=== PATIENT | male | born 1940 | race Caucasian/White ===

== ENCOUNTER 2019-09-29 08:50 | Inpatient (IN) ==
[2019-09-29] MEDS ORDERED: METOPROLOL TARTRATE 5 MG/5 ML VIAL IV STA ×2 (09:16→10:35)
[2019-09-29] MEDS ORDERED: ASPIRIN CHEW 81 MG TABLET PO STA (09:16)
[2019-09-29 09:50] LABS: Calcium 8.8 MG/DL (8.5-10.1); Osmolality,Calculated 285.5 MOS/KG (273-304)
[2019-09-29 09:58] LABS: Basophils % 0.5 % (0.0-0.8); Eosinophils # 0.1 10*3/uL (0.0-0.87); Eosinophils % 1.1 % (0.00-10.9); Hematocrit 32.7 VOL% (42.0-52.0); Immature Granulocytes % 0.8 %; Immature Granulocytes Absolute 0.05 #; Lymphocytes # 0.7 10*3/uL (1.4-4.0); Lymphocytes % 10.3 % (21.2-54.2); Mean Corpuscular HGB Conc 29.7 GM/DL (32-36); Mean Corpuscular Volume 86.5 FL (87-102); Mean Platelet Volume 11.3 FL (9.6-12.0); Monocytes % 13.2 % (1.7-12.7); Neutrophils % 74.1 % (38.7-73.9); Platelet Count 189 T/CUMM (130-400); Red Blood Count 3.78 MC/CUMM (3.8-5.5); Red Cell Distribution Width 17.9 % (9.3-17.3); White Blood Count 6.3 T/CUMM (4-12)
[2019-09-29 10:00] LABS: Hemoglobin 9.7 GM/DL (14.0-18.0)
[2019-09-29] MEDS ORDERED: SODIUM CHLORIDE 0.9% 1,000 ML IV STA (10:04)
[2019-09-29 10:20] LABS: PT Patient Result 10.9 SECS (9.8-11.9)
[2019-09-29] MEDS ORDERED: METOPROLOL TARTRATE 25 MG TABLET PO STA (11:22)
[2019-09-29] MEDS ORDERED: DEXTROSE 50% 25 GM/50 ML VIAL IV PRN (12:13)
[2019-09-29] MEDS ORDERED: GLUCAGON 1 MG VIAL IM PRN (12:13)
[2019-09-29] MEDS ORDERED: PANTOPRAZOLE 40 MG TABLET PO PRN (13:30)
[2019-09-29] MEDS: SODIUM CHLORIDE 0.9% 1,000 ML IV SCH (14:43)
[2019-09-29] MEDS: ALBUTEROL/IPRATROPIUM 3 ML NEB RESP TX PRN (16:44)
[2019-09-29] MEDS: DILTIAZEM 60 MG TABLET PO SCH ×2 (17:28→21:20)
[2019-09-29] MEDS ORDERED: METOPROLOL TARTRATE 25 MG TABLET PO SCH (18:00)
[2019-09-29] MEDS: APIXABAN 2.5 MG TABLET PO SCH (21:20)
[2019-09-29] MEDS: AMIODARONE 200 MG TABLET PO SCH (21:20)
[2019-09-29] MEDS: ONDANSETRON 4 MG/2 ML VIAL IV PRN (22:15)
[2019-09-29] MEDS ORDERED: ZALEPLON 5 MG CAPSULE PO ONE (22:31)
[2019-09-30] MEDS: SODIUM CHLORIDE 0.9% 1,000 ML IV SCH (02:32)
[2019-09-30 06:39] LABS: Calcium 8.2 MG/DL (8.5-10.1); Osmolality,Calculated 285.7 MOS/KG (273-304)
[2019-09-30] MEDS: ONDANSETRON 4 MG/2 ML VIAL IV PRN ×2 (07:09→11:42)
[2019-09-30 07:10] LABS: Albumin 2.7 G/DL (3.4-5.0); Bilirubin,Total 0.5 MG/DL (0.2-1.0); Calcium 8.3 MG/DL (8.5-10.1); Osmolality,Calculated 287.5 MOS/KG (273-304); Total Protein 6.4 G/DL (6.4-8.3)
[2019-09-30 07:20] LABS: Basophils % 0.7 % (0.0-0.8); Eosinophils % 0.3 % (0.00-10.9); Hematocrit 31.1 VOL% (42.0-52.0); Immature Granulocytes Absolute 0.06 #; Lymphocytes # 0.6 10*3/uL (1.4-4.0); Lymphocytes % 10.2 % (21.2-54.2); Mean Corpuscular HGB Conc 28.9 GM/DL (32-36); Mean Corpuscular Volume 87.6 FL (87-102); Mean Platelet Volume 11.8 FL (9.6-12.0); Monocytes % 10.5 % (1.7-12.7); Neutrophils % 77.3 % (38.7-73.9); Platelet Count 203 T/CUMM (130-400); Red Blood Count 3.55 MC/CUMM (3.8-5.5); Red Cell Distribution Width 17.9 % (9.3-17.3); White Blood Count 6.1 T/CUMM (4-12)
[2019-09-30] MEDS: ALBUTEROL/IPRATROPIUM 3 ML NEB RESP TX PRN ×3 (08:00→19:14)
[2019-09-30 08:18] LABS: Hypochromasia 1+; Microcytosis 1+; Ovalocytes Slight; Platelet Estimate Normal
[2019-09-30] MEDS: METOPROLOL SUCCINATE XL 25 MG TABLET PO SCH (09:19)
[2019-09-30] MEDS: DILTIAZEM 60 MG TABLET PO SCH (09:20)
[2019-09-30] MEDS: ATORVASTATIN 40 MG TABLET PO SCH (09:21)
[2019-09-30] MEDS: APIXABAN 2.5 MG TABLET PO SCH ×2 (09:21→20:41)
[2019-09-30] MEDS: AMIODARONE 200 MG TABLET PO SCH ×2 (09:22→20:41)
[2019-09-30] MEDS: FLUoxetine 20 MG CAPSULE PO SCH (09:22)
[2019-09-30] MEDS: ASPIRIN EC 81 MG TABLET PO SCH (09:22)
[2019-09-30] MEDS: BUDESONIDE/FORMOTEROL 80-4.5 INHALER 6.9 GM INH SCH ×2 (11:42→20:41)
[2019-09-30] MEDS ORDERED: DILTIAZEM 50 MG/10 ML VIAL IV ONE (14:33)
[2019-09-30] MEDS: dilTIAZem Drip 125 MG/125 ML PREMIX IV SCH (15:26)
[2019-10-01] MEDS: ALBUTEROL/IPRATROPIUM 3 ML NEB RESP TX PRN ×2 (00:34→07:38)
[2019-10-01] MEDS: dilTIAZem Drip 125 MG/125 ML PREMIX IV SCH ×2 (02:37→15:04)
[2019-10-01 06:59] LABS: Calcium 8.4 MG/DL (8.5-10.1); Osmolality,Calculated 289.7 MOS/KG (273-304)
[2019-10-01 07:12] LABS: Albumin 2.8 G/DL (3.4-5.0); Bilirubin,Direct 0.22 MG/DL (0.0-0.20); Bilirubin,Indirect 0.5 MG/DL (0.0-1.0); Bilirubin,Total 0.7 MG/DL (0.2-1.0); Thyroid Stimulating Hormone 2.71 uIU/ml (0.358-3.74); Total Protein 6.2 G/DL (6.4-8.3)
[2019-10-01 07:37] LABS: Basophils % 0.6 % (0.0-0.8); Eosinophils % 0.1 % (0.00-10.9); Hematocrit 30.5 VOL% (42.0-52.0); Immature Granulocytes % 1.5 %; Lymphocytes # 0.6 10*3/uL (1.4-4.0); Lymphocytes % 8.5 % (21.2-54.2); Mean Corpuscular HGB Conc 30.2 GM/DL (32-36); Mean Corpuscular Volume 86.9 FL (87-102); Mean Platelet Volume 10.9 FL (9.6-12.0); Monocytes % 10.8 % (1.7-12.7); Neutrophils % 78.5 % (38.7-73.9); Platelet Count 218 T/CUMM (130-400); Red Blood Count 3.51 MC/CUMM (3.8-5.5); Red Cell Distribution Width 17.9 % (9.3-17.3); White Blood Count 6.9 T/CUMM (4-12)
[2019-10-01 07:39] LABS: Hemoglobin 9.2 GM/DL (14.0-18.0)
[2019-10-01] MEDS: APIXABAN 2.5 MG TABLET PO SCH ×2 (08:28→21:46)
[2019-10-01] MEDS: ASPIRIN EC 81 MG TABLET PO SCH (08:28)
[2019-10-01] MEDS: METOPROLOL SUCCINATE XL 25 MG TABLET PO SCH (08:28)
[2019-10-01] MEDS: ATORVASTATIN 40 MG TABLET PO SCH (08:28)
[2019-10-01] MEDS: AMIODARONE 200 MG TABLET PO SCH (08:28)
[2019-10-01] MEDS: BUDESONIDE/FORMOTEROL 80-4.5 INHALER 6.9 GM INH SCH ×2 (08:28→21:46)
[2019-10-01] MEDS: FLUoxetine 20 MG CAPSULE PO SCH (08:29)
[2019-10-01] MEDS: ONDANSETRON 4 MG/2 ML VIAL IV PRN ×2 (08:30→13:01)
[2019-10-01] MEDS ORDERED: methylPREDNISolone SOD SUC 40 MG/1 ML VIAL IV ONE (10:47)
[2019-10-01] MEDS: DILTIAZEM 60 MG TABLET PO SCH ×2 (11:19→14:49)
[2019-10-01] MEDS ORDERED: CLORAZEPATE 3.75 MG TABLET PO PRN (11:31)
[2019-10-01] MEDS: methylPREDNISolone SOD SUC 40 MG/1 ML VIAL IV SCH ×2 (11:35→23:21)
[2019-10-01] MEDS ORDERED: FUROSEMIDE 40 MG/4 ML VIAL IV ONE (12:10)
[2019-10-01] MEDS: ASCORBIC ACID 500 MG TABLET PO SCH ×2 (13:16→21:46)
[2019-10-01] MEDS: FEXOFENADINE 60 MG TABLET PO SCH ×2 (13:36→21:46)
[2019-10-01] MEDS ORDERED: DIGOXIN 0.5 MG/2 ML AMP IV ONE ×2 (14:24→16:39)
[2019-10-01] MEDS: ALBUTEROL/IPRATROPIUM 3 ML NEB RESP TX SCH (14:52)
[2019-10-01] MEDS: DILTIAZEM 90 MG TABLET PO SCH (21:46)
[2019-10-02 04:31] LABS: Hematocrit 31.5 VOL% (42.0-52.0); Hemoglobin 9.3 GM/DL (14.0-18.0); Immature Granulocytes % 0.6 %; Immature Granulocytes Absolute 0.03 #; Lymphocytes # 0.3 10*3/uL (1.4-4.0); Lymphocytes % 4.9 % (21.2-54.2); Mean Corpuscular HGB Conc 29.5 GM/DL (32-36); Mean Corpuscular Volume 86.3 FL (87-102); Mean Platelet Volume 11.2 FL (9.6-12.0); Neutrophils % 93.5 % (38.7-73.9); Platelet Count 235 T/CUMM (130-400); Red Blood Count 3.65 MC/CUMM (3.8-5.5); Red Cell Distribution Width 17.7 % (9.3-17.3); White Blood Count 5.1 T/CUMM (4-12)
[2019-10-02 04:52] LABS: Calcium 8.8 MG/DL (8.5-10.1); Osmolality,Calculated 291.7 MOS/KG (273-304)
[2019-10-02 04:56] LABS: Band Neutrophils 2 % (0-10); Hypochromasia 1+; Lymphocytes 6 % (20-55); Myelocytes 1 %; Ovalocytes Slight; Segmented Neutrophils 90 % (50-85); Total Cells Counted 100
[2019-10-02 04:57] LABS: Microcytosis 1+; Platelet Estimate Normal; Polychromasia Slight
[2019-10-02] MEDS: ALBUTEROL/IPRATROPIUM 3 ML NEB RESP TX SCH ×6 (05:46→20:13)
[2019-10-02 09:27] LABS: % Iron Saturation 11.2 % (18-50)
[2019-10-02] MEDS: BUDESONIDE/FORMOTEROL 80-4.5 INHALER 6.9 GM INH SCH ×2 (10:10→20:35)
[2019-10-02] MEDS: ASPIRIN EC 81 MG TABLET PO SCH (10:11)
[2019-10-02] MEDS: METOPROLOL SUCCINATE XL 25 MG TABLET PO SCH (10:11)
[2019-10-02] MEDS: FLUoxetine 20 MG CAPSULE PO SCH (10:11)
[2019-10-02] MEDS: DILTIAZEM 90 MG TABLET PO SCH ×3 (10:11→20:36)
[2019-10-02] MEDS: ASCORBIC ACID 500 MG TABLET PO SCH ×2 (10:13→20:36)
[2019-10-02] MEDS: FEXOFENADINE 60 MG TABLET PO SCH ×2 (10:13→20:36)
[2019-10-02] MEDS: ATORVASTATIN 40 MG TABLET PO SCH (10:13)
[2019-10-02] MEDS: APIXABAN 2.5 MG TABLET PO SCH ×2 (10:13→20:35)
[2019-10-02] MEDS: methylPREDNISolone SOD SUC 40 MG/1 ML VIAL IV SCH ×2 (11:30→23:39)
[2019-10-02] MEDS: DIGOXIN 0.125 MG TABLET PO SCH (12:50)
[2019-10-02] MEDS: dilTIAZem Drip 125 MG/125 ML PREMIX IV SCH (14:03)
[2019-10-02] MEDS: FERROUS SULFATE 325 MG TABLET PO SCH (20:35)
[2019-10-03] MEDS: ONDANSETRON 4 MG/2 ML VIAL IV PRN ×2 (00:24→12:59)
[2019-10-03] MEDS: ALBUTEROL/IPRATROPIUM 3 ML NEB RESP TX SCH ×6 (00:58→18:22)
[2019-10-03 04:18] LABS: Basophils % 0.1 % (0.0-0.8); Hematocrit 28.1 VOL% (42.0-52.0); Hemoglobin 8.3 GM/DL (14.0-18.0); Immature Granulocytes % 0.6 %; Immature Granulocytes Absolute 0.06 #; Lymphocytes # 0.2 10*3/uL (1.4-4.0); Lymphocytes % 2.1 % (21.2-54.2); Mean Corpuscular HGB Conc 29.5 GM/DL (32-36); Mean Corpuscular Volume 85.7 FL (87-102); Mean Platelet Volume 10.9 FL (9.6-12.0); Monocytes % 3.2 % (1.7-12.7); Platelet Count 224 T/CUMM (130-400); Red Blood Count 3.28 MC/CUMM (3.8-5.5); Red Cell Distribution Width 17.5 % (9.3-17.3); White Blood Count 9.5 T/CUMM (4-12)
[2019-10-03 04:36] LABS: Calcium 8.6 MG/DL (8.5-10.1); Osmolality,Calculated 293.8 MOS/KG (273-304)
[2019-10-03 04:46] LABS: Hypochromasia 1+; Lymphocytes 6 % (20-55); Ovalocytes Slight; Platelet Estimate Adequate; Segmented Neutrophils 93 % (50-85); Total Cells Counted 100
[2019-10-03 04:47] LABS: Microcytosis 1+
[2019-10-03] MEDS ORDERED: LIDOCAINE 2% 5 ML VIAL ONE (09:19)
[2019-10-03] MEDS ORDERED: propofoL 200 MG/20 ML VIAL IV ONE (09:19)
[2019-10-03] MEDS: SODIUM CHLORIDE 0.9% 1,000 ML IV SCH (09:28)
[2019-10-03] MEDS: ASPIRIN EC 81 MG TABLET PO SCH (10:10)
[2019-10-03] MEDS: FEXOFENADINE 60 MG TABLET PO SCH ×2 (10:10→22:05)
[2019-10-03] MEDS: DILTIAZEM 90 MG TABLET PO SCH ×3 (10:10→22:06)
[2019-10-03] MEDS: APIXABAN 2.5 MG TABLET PO SCH ×2 (10:11→22:07)
[2019-10-03] MEDS: BUDESONIDE/FORMOTEROL 80-4.5 INHALER 6.9 GM INH SCH ×2 (10:11→22:07)
[2019-10-03] MEDS: METOPROLOL SUCCINATE XL 25 MG TABLET PO SCH (10:11)
[2019-10-03] MEDS: ASCORBIC ACID 500 MG TABLET PO SCH ×2 (10:11→22:05)
[2019-10-03] MEDS: ATORVASTATIN 40 MG TABLET PO SCH (10:11)
[2019-10-03] MEDS: FLUoxetine 20 MG CAPSULE PO SCH (10:11)
[2019-10-03] MEDS: FERROUS SULFATE 325 MG TABLET PO SCH ×2 (10:11→22:05)
[2019-10-03] MEDS: methylPREDNISolone SOD SUC 40 MG/1 ML VIAL IV SCH ×2 (10:15→23:55)
[2019-10-03] MEDS: DIGOXIN 0.125 MG TABLET PO SCH (13:01)
[2019-10-03] MEDS: SOTALOL 80 MG TABLET PO SCH ×2 (13:01→22:06)
[2019-10-03] MEDS: dilTIAZem Drip 125 MG/125 ML PREMIX IV SCH (16:07)
[2019-10-04] MEDS: ALBUTEROL/IPRATROPIUM 3 ML NEB RESP TX SCH ×7 (00:11→23:40)
[2019-10-04 04:47] LABS: Hematocrit 28.5 VOL% (42.0-52.0); Hemoglobin 8.2 GM/DL (14.0-18.0); Immature Granulocytes % 0.5 %; Immature Granulocytes Absolute 0.05 #; Lymphocytes # 0.2 10*3/uL (1.4-4.0); Lymphocytes % 2.3 % (21.2-54.2); Mean Corpuscular HGB Conc 28.8 GM/DL (32-36); Mean Platelet Volume 11.1 FL (9.6-12.0); Monocytes % 2.7 % (1.7-12.7); NRBC # 0.02 10*3/uL; Neutrophils % 94.5 % (38.7-73.9); Platelet Count 230 T/CUMM (130-400); Red Blood Count 3.24 MC/CUMM (3.8-5.5); Red Cell Distribution Width 17.9 % (9.3-17.3); White Blood Count 9.2 T/CUMM (4-12)
[2019-10-04 04:58] LABS: Calcium 8.5 MG/DL (8.5-10.1)
[2019-10-04 06:30] LABS: Anisocytosis 1+; Band Neutrophils 2 % (0-10); Elliptocytes 1+; Lymphocytes 2 % (20-55); Platelet Estimate Normal; Segmented Neutrophils 94 % (50-85); Total Cells Counted 100
[2019-10-04] MEDS: ASCORBIC ACID 500 MG TABLET PO SCH ×2 (09:23→20:56)
[2019-10-04] MEDS: FEXOFENADINE 60 MG TABLET PO SCH ×2 (09:23→20:57)
[2019-10-04] MEDS: FERROUS SULFATE 325 MG TABLET PO SCH ×2 (09:24→20:57)
[2019-10-04] MEDS: DILTIAZEM 90 MG TABLET PO SCH ×2 (09:24→14:04)
[2019-10-04] MEDS: SOTALOL 80 MG TABLET PO SCH ×2 (09:25→20:56)
[2019-10-04] MEDS: APIXABAN 2.5 MG TABLET PO SCH ×2 (09:25→20:56)
[2019-10-04] MEDS: ATORVASTATIN 40 MG TABLET PO SCH (09:26)
[2019-10-04] MEDS: FLUoxetine 20 MG CAPSULE PO SCH (09:26)
[2019-10-04] MEDS: BUDESONIDE/FORMOTEROL 80-4.5 INHALER 6.9 GM INH SCH ×2 (09:26→21:00)
[2019-10-04] MEDS: ASPIRIN EC 81 MG TABLET PO SCH (09:26)
[2019-10-04] MEDS: methylPREDNISolone SOD SUC 40 MG/1 ML VIAL IV SCH (11:07)
[2019-10-04] MEDS: DIGOXIN 0.125 MG TABLET PO SCH (14:04)
[2019-10-04] MEDS: DILTIAZEM 60 MG TABLET PO SCH ×2 (14:31→20:57)
[2019-10-04] MEDS: SODIUM CHLORIDE 0.9% 1,000 ML IV SCH (14:52)
[2019-10-05] MEDS: ALBUTEROL/IPRATROPIUM 3 ML NEB RESP TX SCH ×3 (04:15→10:35)
[2019-10-05 05:50] LABS: Hematocrit 29.8 VOL% (42.0-52.0); Hemoglobin 8.7 GM/DL (14.0-18.0); Immature Granulocytes % 0.5 %; Immature Granulocytes Absolute 0.04 #; Lymphocytes # 0.2 10*3/uL (1.4-4.0); Lymphocytes % 2.8 % (21.2-54.2); Mean Corpuscular HGB Conc 29.2 GM/DL (32-36); Mean Corpuscular Volume 87.4 FL (87-102); Mean Platelet Volume 10.5 FL (9.6-12.0); Monocytes % 6.7 % (1.7-12.7); Platelet Count 198 T/CUMM (130-400); Red Blood Count 3.41 MC/CUMM (3.8-5.5); Red Cell Distribution Width 17.9 % (9.3-17.3); White Blood Count 8.1 T/CUMM (4-12)
[2019-10-05 06:00] LABS: Calcium 8.5 MG/DL (8.5-10.1)
[2019-10-05 06:39] LABS: Band Neutrophils 1 % (0-10); Hypochromasia 2+; Lymphocytes 1 % (20-55); Microcytosis Slight; Ovalocytes Slight; Platelet Estimate Adequate; Segmented Neutrophils 94 % (50-85); Total Cells Counted 100
[2019-10-05] MEDS ORDERED: methylPREDNISolone SOD SUC 40 MG/1 ML VIAL IV SCH (09:00)
[2019-10-05] MEDS ORDERED: DILTIAZEM CD 120 MG CAPSULE PO SCH (09:00)
[2019-10-05] MEDS: FLUoxetine 20 MG CAPSULE PO SCH (09:15)
[2019-10-05] MEDS: ASPIRIN EC 81 MG TABLET PO SCH (09:15)
[2019-10-05] MEDS: APIXABAN 2.5 MG TABLET PO SCH (09:15)
[2019-10-05] MEDS: ASCORBIC ACID 500 MG TABLET PO SCH (09:15)
[2019-10-05] MEDS: FEXOFENADINE 60 MG TABLET PO SCH (09:15)
[2019-10-05] MEDS: ATORVASTATIN 40 MG TABLET PO SCH (09:15)
[2019-10-05] MEDS: FERROUS SULFATE 325 MG TABLET PO SCH (09:15)
[2019-10-05] MEDS: SOTALOL 80 MG TABLET PO SCH (09:15)
[2019-10-05] MEDS: BUDESONIDE/FORMOTEROL 80-4.5 INHALER 6.9 GM INH SCH (09:17)
[2019-10-05] MEDS: SODIUM CHLORIDE 0.9% 1,000 ML IV SCH (09:19)
[2019-10-05 12:07] VITALS: BP 182/88
== END 2019-10-05 13:25 | disposition home health service (06) | DRG 308 ==
LOC: N.ED 08:50 → N.EDINP 12:13 → SUATTDRO 12:13 → N.TELEN 13:31
PROVIDERS: ADMIT Internal Medicine; ATTEND Internal Medicine

== ENCOUNTER 2020-11-08 11:08 | Inpatient (IN) ==
[2020-11-08 14:46] LABS: Basophils % 0.3 % (0.0-0.8); Eosinophils # 0.1 10*3/uL (0.0-0.87); Eosinophils % 1.8 % (0.00-10.9); Hematocrit 35.7 VOL% (42.0-52.0); Immature Granulocytes % 1.5 %; Immature Granulocytes Absolute 0.11 #; Lymphocytes # 0.7 10*3/uL (1.4-4.0); Lymphocytes % 10.2 % (21.2-54.2); Mean Corpuscular HGB Conc 30.8 GM/DL (32-36); Mean Corpuscular Volume 96.2 FL (87-102); Mean Platelet Volume 12.4 FL (9.6-12.0); Neutrophils % 75.2 % (38.7-73.9); Platelet Count 134 T/CUMM (130-400); Red Blood Count 3.71 MC/CUMM (3.8-5.5); Red Cell Distribution Width 17.2 % (9.3-17.3); White Blood Count 7.2 T/CUMM (4-12)
[2020-11-08 14:55] LABS: Calcium 8.2 MG/DL (8.5-10.1); Osmolality,Calculated 293.3 MOS/KG (273-304); Potassium 4.3 MMOL/L (3.5-5.1)
[2020-11-08] MEDS ORDERED: MAGNESIUM SULF RIDER 4 GM/100 ML PREMIX IV PRN (16:37)
[2020-11-08] MEDS ORDERED: ONDANSETRON 4 MG/2 ML VIAL IV PRN (16:37)
[2020-11-08] MEDS ORDERED: MORPHINE 2 MG/1 ML SYRINGE IV PRN (16:37)
[2020-11-08] MEDS ORDERED: MAGNESIUM SULF RIDER 2 GM/50 ML PREMIX IV PRN (16:37)
[2020-11-08] MEDS ORDERED: NITROGLYCERIN SL 0.4 MG TABLET SL PRN (16:40)
[2020-11-08] MEDS: SODIUM CHLORIDE 0.45% 1,000 ML IV SCH (18:56)
[2020-11-08] MEDS ORDERED: ENOXAPARIN 80 MG/0.8 ML SYRINGE SUBCUT ONE (22:03)
[2020-11-08] MEDS ORDERED: ASPIRIN 325 MG TABLET PO ONE (22:04)
[2020-11-09] MEDS: SODIUM CHLORIDE 0.45% 1,000 ML IV SCH ×2 (05:41→16:29)
[2020-11-09 07:23] LABS: High Sensitive Troponin I* 703.9 ng/L (0-78)
[2020-11-09 07:28] LABS: Calcium 7.9 MG/DL (8.5-10.1); Osmolality,Calculated 290.1 MOS/KG (273-304); Potassium 4.4 MMOL/L (3.5-5.1); Risk Ratio 2.75; VLDL Cholesterol 11.8 MG/DL
[2020-11-09] MEDS: PANTOPRAZOLE 40 MG TABLET PO SCH (08:58)
[2020-11-09] MEDS ORDERED: ALBUTEROL 2.5 MG/3 ML NEB RESP TX PRN (09:11)
[2020-11-09] MEDS ORDERED: FLUTICASONE 50 MCG NASAL SPRAY 16 GM BOTTLE BOTH NARES PRN (09:11)
[2020-11-09] MEDS ORDERED: cloNIDine 0.1 MG TABLET PO PRN (09:11)
[2020-11-09] MEDS ORDERED: FUROSEMIDE 20 MG TABLET PO PRN (09:11)
[2020-11-09] MEDS ORDERED: APIXABAN 2.5 MG TABLET PO SCH (09:30)
[2020-11-09] MEDS: DILTIAZEM CD 120 MG CAPSULE PO SCH (10:03)
[2020-11-09] MEDS: ASCORBIC ACID 500 MG TABLET PO SCH ×2 (10:03→20:59)
[2020-11-09] MEDS: SOTALOL 80 MG TABLET PO SCH ×2 (10:03→21:00)
[2020-11-09] MEDS: CETIRIZINE 10 MG TABLET PO SCH (10:04)
[2020-11-09] MEDS: ALBUTEROL/IPRATROPIUM 3 ML NEB RESP TX PRN (11:36)
[2020-11-09] MEDS: ASPIRIN EC 81 MG TABLET PO SCH (12:02)
[2020-11-09] MEDS: NON-FORMULARY MEDICATION (Umeclidinium-Vilanterol [Anoro Ellipta] 62.5-25 mcg/actuation Bl INH SCH (14:52)
[2020-11-09] MEDS ORDERED: FLUoxetine 20 MG CAPSULE PO SCH (21:00)
[2020-11-09] MEDS: TAMSULOSIN 0.4 MG CAPSULE PO SCH (21:00)
[2020-11-09] MEDS: ATORVASTATIN 40 MG TABLET PO SCH (21:01)
[2020-11-10] MEDS: ALBUTEROL/IPRATROPIUM 3 ML NEB RESP TX PRN ×3 (01:35→12:10)
[2020-11-10] MEDS: SODIUM CHLORIDE 0.45% 1,000 ML IV SCH ×4 (05:03→22:05)
[2020-11-10] MEDS: PANTOPRAZOLE 40 MG TABLET PO SCH ×2 (09:43→13:19)
[2020-11-10] MEDS: DILTIAZEM CD 120 MG CAPSULE PO SCH ×2 (09:43→13:19)
[2020-11-10] MEDS: NON-FORMULARY MEDICATION (Umeclidinium-Vilanterol [Anoro Ellipta] 62.5-25 mcg/actuation Bl INH SCH (09:43)
[2020-11-10] MEDS: SOTALOL 80 MG TABLET PO SCH ×3 (09:43→20:10)
[2020-11-10] MEDS: ASCORBIC ACID 500 MG TABLET PO SCH ×3 (09:43→20:10)
[2020-11-10] MEDS: CETIRIZINE 10 MG TABLET PO SCH ×2 (09:43→13:19)
[2020-11-10] MEDS: ASPIRIN EC 81 MG TABLET PO SCH ×2 (12:13→13:18)
[2020-11-10] MEDS ORDERED: POTASSIUM CHLORIDE RIDER 10 MEQ/100 ML PREMIX IV PRN (13:08)
[2020-11-10] MEDS ORDERED: MAGNESIUM SULF RIDER 2 GM/50 ML PREMIX IV PRN (13:08)
[2020-11-10] MEDS ORDERED: DIAZEPAM 5 MG TABLET PO ONE (15:30)
[2020-11-10 15:51] VITALS: BP 192/90
[2020-11-10] MEDS ORDERED: LIDOCAINE 1% 20 ML VIAL ONE (16:21)
[2020-11-10] MEDS ORDERED: HEPARIN/NACL 0.9% 2 UNITS/ML 2,000 UNIT/1,000 ML BAG IV ONE (16:21)
[2020-11-10] MEDS ORDERED: MIDAZOLAM 2 MG/2 ML VIAL ONE (16:35)
[2020-11-10] MEDS ORDERED: fentaNYL 100 MCG/2 ML VIAL ONE (16:35)
[2020-11-10] MEDS ORDERED: VANCOMYCIN 500 MG VIAL ONE ×2 (17:04→18:02)
[2020-11-10] MEDS ORDERED: BIVALIRUDIN 250 MG VIAL IV ONE (17:18)
[2020-11-10] MEDS ORDERED: hydrALAZINE 20 MG/1 ML VIAL ONE (17:32)
[2020-11-10] MEDS ORDERED: CLOPIDOGREL 300 MG TABLET ONE (18:01)
[2020-11-10] MEDS ORDERED: VANCOMYCIN INJ 500 MG in SODIUM CHLORIDE 0.9% 100 ML IV ONE (18:05)
[2020-11-10] MEDS ORDERED: ACETAMINOPHEN/CODEINE 300-30 MG TABLET PO PRN (18:31)
[2020-11-10] MEDS ORDERED: ACETAMINOPHEN 325 MG TABLET PO PRN (18:31)
[2020-11-10] MEDS: ATORVASTATIN 40 MG TABLET PO SCH (20:10)
[2020-11-10] MEDS: TAMSULOSIN 0.4 MG CAPSULE PO SCH (20:10)
[2020-11-11 05:18] LABS: Basophils % 0.3 % (0.0-0.8); Eosinophils # 0.1 10*3/uL (0.0-0.87); Eosinophils % 0.7 % (0.00-10.9); Hematocrit 31.7 VOL% (42.0-52.0); Immature Granulocytes % 1.3 %; Immature Granulocytes Absolute 0.09 #; Lymphocytes # 0.7 10*3/uL (1.4-4.0); Lymphocytes % 9.4 % (21.2-54.2); Mean Corpuscular HGB Conc 30.6 GM/DL (32-36); Mean Corpuscular Volume 96.6 FL (87-102); Monocytes % 11.6 % (1.7-12.7); Neutrophils % 76.7 % (38.7-73.9); Red Blood Count 3.28 MC/CUMM (3.8-5.5); Red Cell Distribution Width 16.5 % (9.3-17.3)
[2020-11-11 05:37] LABS: Platelet Count 110 T/CUMM (130-400)
[2020-11-11 05:38] LABS: Calcium 7.9 MG/DL (8.5-10.1); Hemoglobin 9.7 GM/DL (14.0-18.0); Osmolality,Calculated 274.8 MOS/KG (273-304); Potassium 3.9 MMOL/L (3.5-5.1)
[2020-11-11 06:16] LABS: Anisocytosis 2+; Platelet Estimate Adequate
[2020-11-11 06:17] LABS: Macrocytosis 1+
[2020-11-11] MEDS ORDERED: CLOPIDOGREL 75 MG TABLET PO SCH (09:00)
[2020-11-11] MEDS ORDERED: VANCOMYCIN INJ 1,000 MG in SODIUM CHLORIDE 0.9% 250 ML IV ONE (09:24)
[2020-11-11] MEDS: PANTOPRAZOLE 40 MG TABLET PO SCH (11:00)
[2020-11-11] MEDS: SOTALOL 80 MG TABLET PO SCH (11:00)
[2020-11-11] MEDS: DILTIAZEM CD 120 MG CAPSULE PO SCH (11:00)
[2020-11-11] MEDS: CETIRIZINE 10 MG TABLET PO SCH (11:00)
[2020-11-11] MEDS: ASPIRIN EC 81 MG TABLET PO SCH (11:00)
[2020-11-11] MEDS: ASCORBIC ACID 500 MG TABLET PO SCH (11:00)
[2020-11-11] MEDS: NON-FORMULARY MEDICATION (Umeclidinium-Vilanterol [Anoro Ellipta] 62.5-25 mcg/actuation Bl INH SCH (11:48)
== END 2020-11-11 15:45 | disposition home health service (06) | DRG 251 ==
LOC: N.ED 11:08 → N.EDINP 16:37 → N.TELEN 17:50 → N.ICU 11-10 19:23
PROVIDERS: ADMIT Internal Medicine Cardiovascular Disease; ATTEND Internal Medicine Cardiovascular Disease
PROC: CLCCHCL (ICD-10-PCS; 2020-11-10 16:45)

== ENCOUNTER 2021-01-05 04:38 | Inpatient (IN) ==
[2021-01-05] MEDS ORDERED: ONDANSETRON 4 MG/2 ML VIAL IV STA (05:05)
[2021-01-05] MEDS ORDERED: DILTIAZEM 50 MG/10 ML VIAL IV STA (05:05)
[2021-01-05] MEDS ORDERED: SODIUM CHLORIDE 0.9% 500 ML IV STA (05:34)
[2021-01-05] MEDS: DILTIAZEM INJ 100 MG in SODIUM CHLORIDE 0.9% 100 ML IV SCH (05:36)
[2021-01-05 05:54] LABS: Basophils % 0.5 % (0.0-0.8); Eosinophils # 0.1 10*3/uL (0.0-0.87); Eosinophils % 1.8 % (0.00-10.9); Hematocrit 32.3 VOL% (42.0-52.0); Hemoglobin 9.9 GM/DL (14.0-18.0); Immature Granulocytes % 1.1 %; Immature Granulocytes Absolute 0.07 #; Lymphocytes # 0.6 10*3/uL (1.4-4.0); Lymphocytes % 9.1 % (21.2-54.2); Mean Corpuscular HGB Conc 30.7 GM/DL (32-36); Mean Corpuscular Volume 99.1 FL (87-102); Mean Platelet Volume 11.6 FL (9.6-12.0); Monocytes % 11.2 % (1.7-12.7); Neutrophils % 76.3 % (38.7-73.9); Platelet Count 156 T/CUMM (130-400); Red Blood Count 3.26 MC/CUMM (3.8-5.5); Red Cell Distribution Width 17.5 % (9.3-17.3); White Blood Count 6.6 T/CUMM (4-12)
[2021-01-05 06:01] LABS: INR 1.1; PT Patient Result 11.8 SECS (10.5-12.0)
[2021-01-05] MEDS ORDERED: ALBUTEROL/IPRATROPIUM 3 ML NEB RESP TX STA (06:03)
[2021-01-05 06:11] LABS: Bilirubin,Total 0.7 MG/DL (0.20-1.00); Calcium 8.3 MG/DL (8.5-10.1); Osmolality,Calculated 287.5 MOS/KG (273-304); Potassium 3.8 MMOL/L (3.5-5.1); Total Protein 6.1 G/DL (6.4-8.2)
[2021-01-05 09:11] LABS: Amorphous Crystals,Urine Occasional /HPF (Few); Bacteria,Urine Occasional /HPF (Few); Bilirubin,Urine Negative (Negative); Blood, Urine Negative (Negative); Glucose,Urine (UA) Negative (Negative); Hyaline Casts,Urine 14 /LPF (0-3); Ketones,Urine Negative (Negative); Mucus,Urine Occasional /LPF (Occasional); Nitrite,Urine Negative (Negative); Protein,Urine 100 MG/DL; RBC,Urine 1 /HPF (0-4); Squamous Epithelial Cell,Urine Occasional /HPF (0-10); Urine Appearance CLEAR (Clear); Urine Color Yellow (Yellow); Urine Specific Gravity 1.017 (1.001-1.035)
[2021-01-05] MEDS ORDERED: INFLUENZA VIRUS VACCINE 0.5 ML SYRINGE IM ONE (09:58)
[2021-01-05] MEDS ORDERED: ONDANSETRON 4 MG/2 ML VIAL IV PRN (10:12)
[2021-01-05] MEDS ORDERED: GLUCAGON 1 MG VIAL IM PRN (10:12)
[2021-01-05] MEDS ORDERED: DEXTROSE 50% 25 GM/50 ML VIAL IV PRN (10:12)
[2021-01-05] MEDS ORDERED: ACETAMINOPHEN 325 MG TABLET PO PRN (10:12)
[2021-01-05] MEDS ORDERED: CLOPIDOGREL 75 MG TABLET PO SCH ×2 (10:30→11:30)
[2021-01-05 10:47] LABS: Risk Ratio 3.03; Thyroid Stimulating Hormone 2.36 uIU/ml (0.358-3.74); VLDL Cholesterol 12.8 MG/DL
[2021-01-05] MEDS ORDERED: cloNIDine 0.1 MG TABLET PO PRN (11:14)
[2021-01-05] MEDS: DILTIAZEM CD 120 MG CAPSULE PO SCH (11:35)
[2021-01-05] MEDS: CETIRIZINE 10 MG TABLET PO SCH (11:35)
[2021-01-05] MEDS: ENOXAPARIN 80 MG/0.8 ML SYRINGE SUBCUT SCH ×2 (11:37→22:39)
[2021-01-05] MEDS: Umeclidinium-Vilanterol [Anoro Ellipta] 62.5-25 mcg/actuation Bl INH SCH (11:37)
[2021-01-05] MEDS: SODIUM CHLORIDE 0.9% 1,000 ML IV SCH (11:38)
[2021-01-05] MEDS: ALBUTEROL/IPRATROPIUM 3 ML NEB RESP TX PRN ×2 (11:40→16:30)
[2021-01-05 11:59] LABS: Thyroid Stimulating Hormone 1.4 uIU/ml (0.358-3.74)
[2021-01-05] MEDS ORDERED: ASPIRIN EC 81 MG TABLET PO SCH (12:00)
[2021-01-05] MEDS ORDERED: POTASSIUM CHLORIDE 20 MEQ TABLET PO ONE (12:36)
[2021-01-05] MEDS: NITROFURANTOIN MACRO/MONO 100 MG CAPSULE PO SCH (14:49)
[2021-01-05] MEDS ORDERED: LEVOFLOXACIN INJ 750 MG/150 ML PREMIX IV SCH (15:00)
[2021-01-05] MEDS ORDERED: FUROSEMIDE 40 MG TABLET PO SCH (18:00)
[2021-01-05] MEDS: methylPREDNISolone SOD SUC 40 MG/1 ML VIAL IV SCH (18:09)
[2021-01-05] MEDS: ALBUTEROL/IPRATROPIUM 3 ML NEB RESP TX SCH ×2 (20:14→23:00)
[2021-01-05] MEDS: FLUoxetine 20 MG CAPSULE PO SCH (20:33)
[2021-01-05] MEDS: TAMSULOSIN 0.4 MG CAPSULE PO SCH (20:33)
[2021-01-05] MEDS: ATORVASTATIN 40 MG TABLET PO SCH (20:33)
[2021-01-05] MEDS: ASCORBIC ACID 500 MG TABLET PO SCH (20:34)
[2021-01-05] MEDS ORDERED: ASCORBIC ACID 500 MG TABLET PO SCH (21:00)
[2021-01-05] MEDS: SOTALOL 80 MG TABLET PO SCH (21:00)
[2021-01-05] MEDS: METOPROLOL TARTRATE 5 MG/5 ML VIAL IV PRN (23:24)
[2021-01-06] MEDS: methylPREDNISolone SOD SUC 40 MG/1 ML VIAL IV SCH ×3 (01:10→16:14)
[2021-01-06] MEDS: METOPROLOL TARTRATE 5 MG/5 ML VIAL IV PRN ×2 (02:10→22:18)
[2021-01-06] MEDS ORDERED: DILTIAZEM 50 MG/10 ML VIAL IV ONE (02:48)
[2021-01-06] MEDS: DILTIAZEM INJ 100 MG in SODIUM CHLORIDE 0.9% 100 ML IV SCH ×3 (03:35→11:10)
[2021-01-06] MEDS: ALBUTEROL/IPRATROPIUM 3 ML NEB RESP TX SCH ×6 (04:55→23:55)
[2021-01-06 05:10] LABS: Basophils % 0.2 % (0.0-0.8); Hematocrit 30.1 VOL% (42.0-52.0); Hemoglobin 9.5 GM/DL (14.0-18.0); Immature Granulocytes % 1.9 %; Immature Granulocytes Absolute 0.09 #; Lymphocytes # 0.3 10*3/uL (1.4-4.0); Lymphocytes % 5.4 % (21.2-54.2); Mean Corpuscular HGB Conc 31.6 GM/DL (32-36); Mean Corpuscular Volume 99.3 FL (87-102); Mean Platelet Volume 11.8 FL (9.6-12.0); Monocytes % 1.2 % (1.7-12.7); Neutrophils % 91.3 % (38.7-73.9); Platelet Count 165 T/CUMM (130-400); Red Blood Count 3.03 MC/CUMM (3.8-5.5); Red Cell Distribution Width 17.6 % (9.3-17.3); White Blood Count 4.9 T/CUMM (4-12)
[2021-01-06] MEDS: SODIUM CHLORIDE 0.9% 1,000 ML IV SCH (05:30)
[2021-01-06 05:34] LABS: Band Neutrophils 1 % (0-10); Lymphocytes 2 % (20-55); Platelet Estimate Adequate; Segmented Neutrophils 97 % (50-85); Total Cells Counted 100
[2021-01-06 05:35] LABS: Hypochromasia 1+; Microcytosis Slight
[2021-01-06 05:45] LABS: Calcium 8.3 MG/DL (8.5-10.1); Calcium 8.4 MG/DL (8.5-10.1); Osmolality,Calculated 289.8 MOS/KG (273-304); Osmolality,Calculated 294.4 MOS/KG (273-304); Potassium 4.6 MMOL/L (3.5-5.1); Potassium 4.7 MMOL/L (3.5-5.1)
[2021-01-06] MEDS ORDERED: DIGOXIN 0.5 MG/2 ML AMP IV ONE ×2 (08:41→16:00)
[2021-01-06] MEDS: SOTALOL 80 MG TABLET PO SCH ×2 (09:13→20:11)
[2021-01-06] MEDS: ASPIRIN CHEW 81 MG TABLET PO SCH (09:13)
[2021-01-06] MEDS: NITROFURANTOIN MACRO/MONO 100 MG CAPSULE PO SCH (09:13)
[2021-01-06] MEDS: CETIRIZINE 10 MG TABLET PO SCH (09:14)
[2021-01-06] MEDS: DILTIAZEM CD 120 MG CAPSULE PO SCH (09:14)
[2021-01-06] MEDS: Umeclidinium-Vilanterol [Anoro Ellipta] 62.5-25 mcg/actuation Bl INH SCH (09:30)
[2021-01-06] MEDS: ASCORBIC ACID 500 MG TABLET PO SCH ×2 (11:09→20:12)
[2021-01-06] MEDS: ENOXAPARIN 80 MG/0.8 ML SYRINGE SUBCUT SCH ×2 (12:34→22:34)
[2021-01-06] MEDS ORDERED: FLUTICASONE 50 MCG NASAL SPRAY 16 GM BOTTLE BOTH NARES PRN (13:43)
[2021-01-06] MEDS ORDERED: SODIUM CHLORIDE 0.65% NASAL SPRAY 45 ML BOTTLE BOTH NARES PRN (13:43)
[2021-01-06] MEDS ORDERED: TUBERCULIN SKIN TEST 0.1 ML SYRINGE INTRADERM ONE (14:41)
[2021-01-06] MEDS: ATORVASTATIN 40 MG TABLET PO SCH (20:12)
[2021-01-06] MEDS: TAMSULOSIN 0.4 MG CAPSULE PO SCH (20:12)
[2021-01-06] MEDS: FLUoxetine 20 MG CAPSULE PO SCH (20:12)
[2021-01-07] MEDS: methylPREDNISolone SOD SUC 40 MG/1 ML VIAL IV SCH ×3 (01:22→16:40)
[2021-01-07] MEDS: METOPROLOL TARTRATE 5 MG/5 ML VIAL IV PRN (01:23)
[2021-01-07] MEDS: ALBUTEROL/IPRATROPIUM 3 ML NEB RESP TX SCH ×6 (03:42→23:50)
[2021-01-07] MEDS: DILTIAZEM INJ 100 MG in SODIUM CHLORIDE 0.9% 100 ML IV SCH (05:55)
[2021-01-07 06:24] LABS: Hematocrit 29.3 VOL% (42.0-52.0); Hemoglobin 9.1 GM/DL (14.0-18.0); Immature Granulocytes % 1.3 %; Immature Granulocytes Absolute 0.09 #; Lymphocytes # 0.3 10*3/uL (1.4-4.0); Lymphocytes % 3.5 % (21.2-54.2); Mean Corpuscular HGB Conc 31.1 GM/DL (32-36); Mean Corpuscular Volume 97.7 FL (87-102); Mean Platelet Volume 11.9 FL (9.6-12.0); NRBC # 0.02 10*3/uL; Neutrophils % 91.2 % (38.7-73.9); Platelet Count 178 T/CUMM (130-400); Red Cell Distribution Width 17.5 % (9.3-17.3); White Blood Count 7.1 T/CUMM (4-12)
[2021-01-07 06:41] LABS: Calcium 8.7 MG/DL (8.5-10.1); Osmolality,Calculated 298.8 MOS/KG (273-304); Potassium 4.4 MMOL/L (3.5-5.1)
[2021-01-07 06:44] LABS: Hypochromasia 1+; Lymphocytes 3 % (20-55); Microcytosis 1+; Platelet Estimate Adequate; Segmented Neutrophils 94 % (50-85); Total Cells Counted 100
[2021-01-07] MEDS ORDERED: DIGOXIN 0.5 MG/2 ML AMP IV ONE ×2 (09:16→16:00)
[2021-01-07] MEDS: SOTALOL 80 MG TABLET PO SCH ×2 (09:19→22:15)
[2021-01-07] MEDS: ASPIRIN CHEW 81 MG TABLET PO SCH (09:19)
[2021-01-07] MEDS: DILTIAZEM CD 120 MG CAPSULE PO SCH (09:20)
[2021-01-07] MEDS: Umeclidinium-Vilanterol [Anoro Ellipta] 62.5-25 mcg/actuation Bl INH SCH (09:20)
[2021-01-07] MEDS: ASCORBIC ACID 500 MG TABLET PO SCH ×2 (09:20→22:16)
[2021-01-07] MEDS: NITROFURANTOIN MACRO/MONO 100 MG CAPSULE PO SCH (09:20)
[2021-01-07] MEDS: CETIRIZINE 10 MG TABLET PO SCH (09:20)
[2021-01-07] MEDS: DILTIAZEM 30 MG TABLET PO SCH ×2 (09:25→12:22)
[2021-01-07] MEDS ORDERED: MORPHINE 2 MG/1 ML SYRINGE IV ONE (10:17)
[2021-01-07] MEDS: ENOXAPARIN 80 MG/0.8 ML SYRINGE SUBCUT SCH ×2 (12:23→22:37)
[2021-01-07] MEDS ORDERED: LEVOFLOXACIN INJ 750 MG/150 ML PREMIX IV SCH (15:00)
[2021-01-07] MEDS: TAMSULOSIN 0.4 MG CAPSULE PO SCH (22:16)
[2021-01-07] MEDS: FLUoxetine 20 MG CAPSULE PO SCH (22:17)
[2021-01-07] MEDS: ATORVASTATIN 40 MG TABLET PO SCH (22:17)
[2021-01-08] MEDS: methylPREDNISolone SOD SUC 40 MG/1 ML VIAL IV SCH ×2 (01:33→09:51)
[2021-01-08] MEDS: ALBUTEROL/IPRATROPIUM 3 ML NEB RESP TX SCH ×3 (03:50→23:55)
[2021-01-08 05:51] LABS: Hematocrit 28.8 VOL% (42.0-52.0); Hemoglobin 9.1 GM/DL (14.0-18.0); Immature Granulocytes % 1.9 %; Immature Granulocytes Absolute 0.13 #; Lymphocytes # 0.3 10*3/uL (1.4-4.0); Lymphocytes % 3.7 % (21.2-54.2); Mean Corpuscular HGB Conc 31.6 GM/DL (32-36); Mean Platelet Volume 11.5 FL (9.6-12.0); Monocytes % 4.4 % (1.7-12.7); NRBC # 0.04 10*3/uL; Platelet Count 177 T/CUMM (130-400); Red Blood Count 2.97 MC/CUMM (3.8-5.5); Red Cell Distribution Width 17.5 % (9.3-17.3); White Blood Count 6.8 T/CUMM (4-12)
[2021-01-08 06:12] LABS: Hypochromasia 1+; Lymphocytes 2 % (20-55); Microcytosis 1+; Platelet Estimate Adequate; Segmented Neutrophils 96 % (50-85); Total Cells Counted 100
[2021-01-08 06:14] LABS: Calcium 8.6 MG/DL (8.5-10.1); Osmolality,Calculated 297.2 MOS/KG (273-304); Potassium 4.8 MMOL/L (3.5-5.1)
[2021-01-08] MEDS: PANTOPRAZOLE 40 MG TABLET PO SCH (06:44)
[2021-01-08] MEDS ORDERED: SIMETHICONE CHEW 125 MG TABLET PO PRN (07:15)
[2021-01-08] MEDS ORDERED: MORPHINE 2 MG/1 ML SYRINGE IV PRN (08:07)
[2021-01-08] MEDS ORDERED: DIGOXIN 0.5 MG/2 ML AMP IV ONE (08:17)
[2021-01-08] MEDS: DILTIAZEM INJ 100 MG in SODIUM CHLORIDE 0.9% 100 ML IV SCH (09:51)
[2021-01-08] MEDS: SOTALOL 80 MG TABLET PO SCH ×2 (09:52→23:20)
[2021-01-08] MEDS: CETIRIZINE 10 MG TABLET PO SCH (09:52)
[2021-01-08] MEDS: ASCORBIC ACID 500 MG TABLET PO SCH ×2 (09:52→23:20)
[2021-01-08] MEDS: ASPIRIN CHEW 81 MG TABLET PO SCH (09:52)
[2021-01-08] MEDS: DILTIAZEM CD 120 MG CAPSULE PO SCH (09:52)
[2021-01-08] MEDS: Umeclidinium-Vilanterol [Anoro Ellipta] 62.5-25 mcg/actuation Bl INH SCH (09:53)
[2021-01-08] MEDS: ENOXAPARIN 80 MG/0.8 ML SYRINGE SUBCUT SCH ×2 (13:53→23:20)
[2021-01-08] MEDS: FLUoxetine 20 MG CAPSULE PO SCH (23:20)
[2021-01-08] MEDS: TAMSULOSIN 0.4 MG CAPSULE PO SCH (23:20)
[2021-01-08] MEDS: ATORVASTATIN 40 MG TABLET PO SCH (23:20)
[2021-01-09] MEDS: PANTOPRAZOLE 40 MG TABLET PO SCH (06:03)
[2021-01-09 06:40] LABS: Hematocrit 28.4 VOL% (42.0-52.0); Hemoglobin 8.7 GM/DL (14.0-18.0); Immature Granulocytes Absolute 0.12 #; Lymphocytes # 0.2 10*3/uL (1.4-4.0); Lymphocytes % 3.3 % (21.2-54.2); Mean Corpuscular HGB Conc 30.6 GM/DL (32-36); Mean Corpuscular Volume 97.3 FL (87-102); Mean Platelet Volume 11.4 FL (9.6-12.0); Monocytes % 9.3 % (1.7-12.7); NRBC # 0.04 10*3/uL; Neutrophils % 85.4 % (38.7-73.9); Platelet Count 152 T/CUMM (130-400); Red Blood Count 2.92 MC/CUMM (3.8-5.5); Red Cell Distribution Width 17.3 % (9.3-17.3)
[2021-01-09 07:03] LABS: Eosinophils 1 % (0-10); Lymphocytes 3 % (20-55); Nucleated Red Blood Cells 1 (0-5); Platelet Estimate Normal; Segmented Neutrophils 91 % (50-85); Total Cells Counted 100
[2021-01-09 07:04] LABS: Hypochromasia Slight
[2021-01-09 07:07] LABS: Calcium 8.4 MG/DL (8.5-10.1); Potassium 4.6 MMOL/L (3.5-5.1)
[2021-01-09] MEDS: ALBUTEROL/IPRATROPIUM 3 ML NEB RESP TX SCH (07:30)
[2021-01-09 08:08] VITALS: BP 117/80
[2021-01-09] MEDS: ASPIRIN CHEW 81 MG TABLET PO SCH (08:52)
[2021-01-09] MEDS: CETIRIZINE 10 MG TABLET PO SCH (08:52)
[2021-01-09] MEDS: DILTIAZEM CD 120 MG CAPSULE PO SCH (08:53)
[2021-01-09] MEDS: SOTALOL 80 MG TABLET PO SCH (08:53)
[2021-01-09] MEDS: Umeclidinium-Vilanterol [Anoro Ellipta] 62.5-25 mcg/actuation Bl INH SCH (08:54)
[2021-01-09] MEDS: ASCORBIC ACID 500 MG TABLET PO SCH (08:54)
[2021-01-09] MEDS ORDERED: predniSONE 20 MG TABLET PO SCH (09:00)
[2021-01-09] MEDS: DILTIAZEM INJ 100 MG in SODIUM CHLORIDE 0.9% 100 ML IV SCH (09:06)
[2021-01-09] MEDS ORDERED: DIGOXIN 0.5 MG/2 ML AMP IV ONE (10:20)
== END 2021-01-09 11:50 | disposition swing bed (61) | DRG 309 ==
LOC: EDBD → EDUNIT# → N.ED 04:38 → N.TELES 04:38
PROVIDERS: ADMIT Internal Medicine; ATTEND Internal Medicine